=== PATIENT | male | born 1995 | race Caucasian/White ===

== ENCOUNTER 2018-09-25 15:07 | Observation (INO) ==
[2018-09-25] MEDS ORDERED: MoRPHine SULFATE 4 MG/ML 1 ML CARP\\VIAL IV PRN ×2 (15:49→20:37)
[2018-09-25] MEDS ORDERED: ONDANSETRON INJ 2 MG/ML 2 ML VIAL IV STA (15:49)
[2018-09-25 15:59] LABS: Basophils # (auto) 0.02 K/uL (0-0.2); Basophils % (auto) 0.1 %; Eosinophils # (auto) 0.07 K/uL (0-0.5); Eosinophils % (auto) 0.4 %; Hematocrit (blood only) 45.2 % (42-52); Hemoglobin 15.6 g/dL (14.0-18.0); Immature Granulocytes # (auto) 0.03 K/uL (0.00-0.02); Immature Granulocytes % (auto) 0.2 %; Lymphocytes % (auto) 5.6 %; Mean Corpuscular Hgb Conc 34.5 g/dL (32-36); Mean Corpuscular Volume 84.5 fL (80-100); Mean Platelet Volume 9.3 fL (7.4-10.4); Monocytes % (auto) 6.8 %; Neutrophils # (auto) 15.45 K/uL (1.4-6.5); Neutrophils % (auto) 86.9 %; Platelet Count 217 K/uL (130-400); RDW Coefficient of Variation 13.1 % (11.5-14.5); RDW Standard Deviation 40.3 fL (36.4-46.3); Red Blood Count 5.35 M/uL (4.7-6.1); White Blood Count 17.77 K/uL (4.8-10.8)
[2018-09-25] MEDS ORDERED: SODIUM CHLORIDE 0.9% 1000ML 1,000 ML IV SCH (16:00)
[2018-09-25 16:08] LABS: iSTAT Creatinine 0.8 mg/dl (0.6-1.3); iSTAT Hemoglobin 16.3 g/dl (14.0-18.0); iSTAT Ionized Calcium 1.2 mmol/l (1.12-1.32); iSTAT Potassium 3.7 mEq/L (3.3-5.0)
[2018-09-25 16:14] LABS: Appearance Urine Clear (Clear); Bilirubin Urine Negative (Negative); Blood Urine Negative (Negative); Color Urine Dark Yellow; Glucose Urine UA Negative (Negative); Ketones Urine 1+ (Negative); Leukocyte Esterase Urine Negative (Negative); Nitrite Urine Negative (Negative); Specific Gravity Urine 1.038 (1.000-1.030); Urobilinogen Urine Negative (Negative); pH Urine 8.5 (4.5-7.5)
[2018-09-25 16:17] LABS: Albumin Level 4.2 gm/dl (3.4-5.0); BUN Creatinine Ratio 9.2 (10-20); Creatinine Clr Calc Pharmacy 147.3 ml/min; Est GFR (Non-African American) 121.7; Potassium 3.8 mmol/L (3.5-5.1)
[2018-09-25 16:20] LABS: Albumin Globulin Ratio 1.1 (0.9-2); Bilirubin,Total 0.8 mg/dl (0.2-1); Globulin 3.8 gm/dl (2.5-4.0)
[2018-09-25] MEDS ORDERED: IOVERSOL 100ml IV PRN (16:31)
--- NOTE | 2018-09-25 16:42 | Emergency Department Note ---
Entered by Braden Conklin acting as a scribe for Hever Major DO History of Present Illness General Chief complaint: Abdominal Pain Stated complaint: POSSIBLE APPY Time Seen by Provider: 09/25/18 15:40 Source: patient Mode of arrival: ambulatory History of Present Illness Provider complaint: Abdominal Pain Onset (ago): hour(s) greater than 10 Location: abdomen Pain Consistency: + constant Maximum Pain Intensity: 6 Current Pain Intensity: 6 Associated symptoms: no chest pain and no cough Patient is a 22 year old male who presents himself for the custodial with chief complaint of abdominal pain since this morning at 5am. He woke up this morning and went to his custodial medical staff and was told nothing was wrong. Upon further pain custodial guards brought him to the ER. Patient notices his pain is sharp in nature and he is getting nauseous at times. He notes the pain to keep gradually building up. He rate his pain constant in nature and at a value of 6 on the pain intensity scale. He has had no surgeries before and no allergies. Patient denies chest pain and headaches. Home Medications Home Medications Medication Instructions Recorded Confirmed Type No Known Home Medications 09/25/18 09/25/18 History acetaminophen-codeine 2 tab PO TID PRN #1 tab 09/26/18 Rx [Tylenol-Codeine #3] ibuprofen 600 mg PO Q6H PRN #1 tab 09/26/18 Rx Allergies Allergy/AdvReac Type Severity Reaction Status Date / Time No Known Allergies Allergy Unverified 09/25/18 17:01 Past Med/Surg History Medical History No pertinent past medical history Social History Preferred Language: [place] Verde[place] Beliefs That Will Affect Care: None Current Living Situation: Other Current Living Situation Comment: encarcerated Other Information That Helps Us Care for You: No Feels Safe at Home: Yes Safety Concerns: Feels Safe At This Time Smoking Status: Current every day smoker Hx Alcohol Use: No Hx Substance Use: No Review of Systems See HPI for pertinent positives & negatives. and A total of 10 systems reviewed and were otherwise negative Physical Exam Vital Signs Vital Signs - 24 hr 09/25/18 15:15 09/25/18 16:04 09/25/18 16:35 Temperature 36.8 C Temperature Source Oral Sepsis Recent Fever Within 48 Hours No Sepsis New/Unexplained Change in Mental Status No Sepsis Action Taken by Nursing No Action Required Pulse Rate 101 H Pulse Rate [Apical] Pulse Rate [Finger] 99 H Pulse Rate [Left Finger] Pulse Rhythm [Apical] Pulse Rhythm [Finger] Pulse Strength [Finger] Respiratory Rate 17 16 Respiratory Effort / Characteristics Non-Labored Respiratory Depth Normal Respiratory Pattern Regular Blood Pressure 137/81 Blood Pressure [Right Arm] 139/84 Blood Pressure Mean 99 Blood Pressure Mean [Right Arm] 102 Blood Pressure Position Sitting Blood Pressure Position [Right Arm] Pulse Oximetry 96 97 99 Oxygen Delivery Method Room Air Room Air Room Air Oxygen Flow Rate 09/25/18 17:03 09/25/18 19:07 09/25/18 19:15 Temperature 37.1 C Temperature Source Temporal Artery Scan Sepsis Recent Fever Within 48 Hours Sepsis New/Unexplained Change in Mental Status Sepsis Action Taken by Nursing Pulse Rate Pulse Rate [Apical] 84 80 Pulse Rate [Finger] 97 H Pulse Rate [Left Finger] Pulse Rhythm [Apical] Regular Regular Pulse Rhythm [Finger] Regular Pulse Strength [Finger] Normal Respiratory Rate 20 26 H 26 H Respiratory Effort / Characteristics Non-Labored Spontaneous Non-Labored Spontaneous Non-Labored Spontaneous Respiratory Depth Normal Normal Normal Respiratory Pattern Regular Regular Regular Blood Pressure Blood Pressure [Right Arm] 144/76 H 131/59 L 138/64 Blood Pressure Mean Blood Pressure Mean [Right Arm] 98 83 88 Blood Pressure Position Blood Pressure Position [Right Arm] Sitting Lying Lying Pulse Oximetry 98 99 99 Oxygen Delivery Method Room Air Oxymask Oxymask Oxygen Flow Rate 10 10 09/25/18 19:25 09/25/18 19:35 09/25/18 19:45 Temperature Temperature Source Sepsis Recent Fever Within 48 Hours Sepsis New/Unexplained Change in Mental Status Sepsis Action Taken by Nursing Pulse Rate Pulse Rate [Apical] 69 70 80 Pulse Rate [Finger] Pulse Rate [Left Finger] Pulse Rhythm [Apical] Regular Regular Regular Pulse Rhythm [Finger] Pulse Strength [Finger] Respiratory Rate 24 24 18 Respiratory Effort / Characteristics Non-Labored Spontaneous Non-Labored Spontaneous Non-Labored Spontaneous Respiratory Depth Normal Normal Normal Respiratory Pattern Regular Regular Regular Blood Pressure Blood Pressure [Right Arm] 131/72 134/64 129/65 Blood Pressure Mean Blood Pressure Mean [Right Arm] 91 87 86 Blood Pressure Position Blood Pressure Position [Right Arm] Lying Lying Lying Pulse Oximetry 99 96 95 Oxygen Delivery Method Oxymask Room Air Room Air Oxygen Flow Rate 10 09/25/18 19:55 09/25/18 20:25 09/25/18 20:55 Temperature 37.5 C 36.9 C Temperature Source Oral Oral Sepsis Recent Fever Within 48 Hours Sepsis New/Unexplained Change in Mental Status Sepsis Action Taken by Nursing Pulse Rate Pulse Rate [Apical] 73 Pulse Rate [Finger] 70 86 Pulse Rate [Left Finger] Pulse Rhythm [Apical] Regular Pulse Rhythm [Finger] Regular Pulse Strength [Finger] Normal Respiratory Rate 18 14 16 Respiratory Effort / Characteristics Non-Labored Spontaneous Non-Labored Spontaneous Non-Labored Spontaneous Respiratory Depth Normal Normal Normal Respiratory Pattern Regular Regular Regular Blood Pressure Blood Pressure [Right Arm] 121/66 127/71 114/72 Blood Pressure Mean Blood Pressure Mean [Right Arm] 84 89 86 Blood Pressure Position Blood Pressure Position [Right Arm] Lying Lying Pulse Oximetry 73 L 95 95 Oxygen Delivery Method Room Air Room Air Room Air Oxygen Flow Rate 09/25/18 21:21 09/25/18 22:26 09/25/18 23:26 Temperature 36.9 C 37.1 C Temperature Source Oral Oral Sepsis Recent Fever Within 48 Hours Sepsis New/Unexplained Change in Mental Status Sepsis Action Taken by Nursing Pulse Rate Pulse Rate [Apical] Pulse Rate [Finger] 81 97 H Pulse Rate [Left Finger] 84 Pulse Rhythm [Apical] Pulse Rhythm [Finger] Pulse Strength [Finger] Respiratory Rate 16 17 14 Respiratory Effort / Characteristics Respiratory Depth Normal Respiratory Pattern Blood Pressure Blood Pressure [Right Arm] 121/72 123/71 116/69 Blood Pressure Mean Blood Pressure Mean [Right Arm] 88 88 84 Blood Pressure Position Blood Pressure Position [Right Arm] Lying Lying Pulse Oximetry 94 94 96 Oxygen Delivery Method Room Air Room Air Room Air Oxygen Flow Rate 09/26/18 03:25 09/26/18 07:28 09/26/18 09:17 Temperature 36.9 C 36.9 C 36.9 C Temperature Source Oral Oral Sepsis Recent Fever Within 48 Hours Sepsis New/Unexplained Change in Mental Status Sepsis Action Taken by Nursing Pulse Rate Pulse Rate [Apical] Pulse Rate [Finger] 97 H Pulse Rate [Left Finger] 84 62 62 Pulse Rhythm [Apical] Pulse Rhythm [Finger] Pulse Strength [Finger] Respiratory Rate 16 18 18 Respiratory Effort / Characteristics Respiratory Depth Respiratory Pattern Blood Pressure Blood Pressure [Right Arm] 132/80 110/75 110/75 Blood Pressure Mean Blood Pressure Mean [Right Arm] 97 86 Blood Pressure Position Blood Pressure Position [Right Arm] Lying Lying Pulse Oximetry 96 96 96 Oxygen Delivery Method Room Air Room Air Oxygen Flow Rate GENERAL: Patient is awake alert in no acute distress patient is resting comfortably and showing no signs of anxiety EYES: The conjunctivae are clear. The pupils are round and reactive. EARS, NOSE, MOUTH AND THROAT: The nose is without any evidence of any deformity. Mucous membranes are moist tongue is midline NECK: The neck is nontender and supple. RESPIRATORY: Normal respiratory effort is noted there is no evidence of wheezing rhonchi or rales CARDIOVASCULAR: Regular rate and rhythm noted there no murmurs rubs or gallops normal S1 normal S2 GASTROINTESTINAL: Abdomen is mildly distended but soft. There is significant right lower quadrant tenderness to palpation with guarding in the right lower quadrant. BACK: No midline tenderness or or step-off noted range of motion in flexion extension as well as rotation no signs of muscle spasm noted MUSCULOSKELETAL/EXTREMITIES: There is no evidence of gross deformity full range of motion is noted in the hips and shoulders SKIN: There is no obvious evidence of any rash. There are no petechiae, pallor or cyanosis noted. NEUROLOGIC: Patient is awake alert and oriented x3 strength is symmetric bradley llar reflexes are 2+ bilaterally Course 1547: Past medical records reviewed. The patient was evaluated in room C04, and a complete history and physical examination were performed. 1703: I spoke with ENE Fallon upon results revealing appendicitis. He will perform the appendectomy procedure. The patient has verbalized agreement to this care. Consultations Consultation #1: ENE Fallon Time: 17:03 Administered Medications Discontinued Medications Bupivacaine HCl/Epinephrine Bitart (Sensorcaine/Epinephrine 0.5% Mpf 1:200,000) Confirm Administered Dose 30 ml .ROUTE .STAltruik-MED ONE Stop: 09/25/18 17:11 Last Admin: 09/25/18 18:45 Dose: 20 ml Documented by: [id number] Fentanyl Citrate (Fentanyl Citrate) 25 mcg IV Q5M PRN PRN Reason: PACU Use Only-Pain Stop: 09/25/18 23:06 Last Admin: 09/25/18 19:37 Dose: 25 mcg Documented by: [id number] Admin: 09/25/18 19:32 Dose: 25 mcg Documented by: [id number] Admin: 09/25/18 19:27 Dose: 25 mcg Documented by: [id number] Admin: 09/25/18 19:22 Dose: 25 mcg Documented by: [id number] Fentanyl Citrate (Fentanyl Citrate) Confirm Administered Dose 100 mcg .ROUTE .STK-MED ONE Stop: 09/25/18 19:24 Last Admin: 09/25/18 21:01 Dose: Not Given Documented by: [id number] Hydromorphone HCl (Dilaudid) 0.25 mg IV Q5M PRN PRN Reason: PACU Use Only-Pain Stop: 09/25/18 23:06 Last Admin: 09/25/18 19:57 Dose: 0.25 mg Documented by: [id number] Admin: 09/25/18 19:52 Dose: 0.25 mg Documented by: [id number] Admin: 09/25/18 19:47 Dose: 0.25 mg Documented by: [id number] Admin: 09/25/18 19:42 Dose: 0.25 mg Documented by: [id number] Hydromorphone HCl (Dilaudid) Confirm Administered Dose 1 mg .ROUTE .STK-MED ONE Stop: 09/25/18 19:40 Last Admin: 09/25/18 21:01 Dose: Not Given Documented by: [id number] Sodium Chloride (Nss 1000ml) 1,000 mls @ 999 mls/hr IV .Q1H1M MARJ Stop: 09/25/18 17:00 Last Infusion: 09/25/18 21:20 Dose: 0 mls/hr Documented by: [id number] Admin: 09/25/18 16:03 Dose: 999 mls/hr Documented by: [id number] Piperacillin Sod/Tazobactam Sod (Zosyn) 4.5 gm in 120 mls @ 240 mls/hr IV NOW ONE Stop: 09/25/18 17:21 Last Infusion: 09/25/18 21:20 Dose: 0 mls/hr Documented by: [id number] Admin: 09/25/18 16:57 Dose: 240 mls/hr Documented by: [id number] Piperacillin Sod/Tazobactam (Sod 3.375 gm/ Dextrose) 115 mls @ 28.75 mls/hr IV Q8H MARJ; Protocol Stop: 10/06/18 00:00 Last Admin: 09/26/18 08:42 Dose: 28.8 mls/hr Documented by: [id number] Infusion: 09/26/18 03:44 Dose: 0 mls/hr Documented by: [id number] Admin: 09/25/18 23:46 Dose: 28.8 mls/hr Documented by: [id number] Lactated Ringer's (Lr) 1,000 mls @ 100 mls/hr IV .Q10H MARJ Stop: 10/25/18 21:44 Last Admin: 09/26/18 08:46 Dose: 100 mls/hr Documented by: [id number] Infusion: 09/26/18 08:46 Dose: 100 mls/hr Documented by: [id number] Admin: 09/26/18 02:16 Dose: 100 mls/hr Documented by: [id number] Ibuprofen (Motrin) 600 mg PO Q6H PRN PRN Reason: MILD Pain (Scale 1,2,3) Stop: 10/25/18 20:36 Last Admin: 09/26/18 08:43 Dose: 600 mg Documented by: [id number] Admin: 09/25/18 23:42 Dose: 600 mg Documented by: [id number] Influenza Virus Vaccine Quadrival (Flucelvax Quad Vaccine) 0.5 ml IM .ONCE ONE Stop: 09/25/18 21:31 Last Admin: 09/26/18 05:58 Dose: 0.5 ml Documented by: [id number] Ioversol (Optiray 320 100ml) 96 ml IV ONCE PRN PRN Reason: Interaction Checking Stop: 09/29/18 16:30 Last Admin: 09/25/18 16:31 Dose: 96 ml Documented by: [id number] Morphine Sulfate (Morphine Sulfate) 4 mg IV Q15M PRN PRN Reason: Pain Stop: 10/09/18 15:48 Last Admin: 09/25/18 16:03 Dose: 4 mg Documented by: [id number] Ondansetron HCl (Zofran) 4 mg IV NOW STA Stop: 09/25/18 15:50 Last Admin: 09/25/18 16:03 Dose: 4 mg Documented by: [id number] Medical Decision Making Differential Diagnosis I considered cholelithiasis, cholecystitis, bowel obstruction, diverticulitis, pancreatitis, renal colic, appendicitis inflammatory bowel disease, gastritis, and peptic/gastric ulcer disease. Medical Records Attestation: I reviewed the patient's medical records. Home Medications Current Medication List: was personally reviewed by me Laboratory Data Attestation: I reviewed the patient's lab results. Result diagrams: 09/25/18 15:49 09/25/18 15:49 Lab Results 09/25/18 09/25/18 09/25/18 Range/Units 15:49 15:49 15:50 WBC 17.77 H (4.8-10.8) K/uL RBC 5.35 (4.7-6.1) M/uL Hgb 15.6 (14.0-18.0) g/dL POC Hgb (14.0-18.0) g/dl Hct 45.2 (42-52) % POC Hct (42-52) % MCV 84.5 (80-100) fL MCH 29.2 (25-34) pg MCHC 34.5 (32-36) g/dL RDW Std Deviation 40.3 (36.4-46.3) fL RDW Coeff of Anayeli 13.1 (11.5-14.5) % Plt Count 217 (130-400) K/uL MPV 9.3 (7.4-10.4) fL Immature Gran % (Auto) 0.2 % Neut % (Auto) 86.9 % Lymph % (Auto) 5.6 % Dickenson % (Auto) 6.8 % Eos % (Auto) 0.4 % Baso % (Auto) 0.1 % Immature Gran # (Auto) 0.03 H (0.00-0.02) K/uL Neut # (Auto) 15.45 H (1.4-6.5) K/uL Lymph # (Auto) 1.00 L (1.2-3.4) K/uL Dickenson # (Auto) 1.20 H (0.11-0.59) K/uL Eos # (Auto) 0.07 (0-0.5) K/uL Baso # (Auto) 0.02 (0-0.2) K/uL POC Sodium (135-144) mEq/L Sodium 138 (136-145) mmol/L POC Potassium (3.3-5.0) mEq/L Potassium 3.8 (3.5-5.1) mmol/L POC Chloride (101-112) mEq/L Chloride 103 (98-107) mmol/L Carbon Dioxide 30 (21-32) mmol/L POC Total CO2 (24-31) mEq/l Anion Gap 5.0 (3-11) POC Anion Gap (16-25) mmol/L POC BUN (7-18) mg/dl BUN 8 (7-18) mg/dl Creatinine 0.90 (0.6-1.4) mg/dl POC Creatinine (0.6-1.3) mg/dl Est Cr Clr Drug Dosing 147.3 ml/min Est GFR ( Amer) 141.0 Est GFR (Non-Af Amer) 121.7 BUN/Creatinine Ratio 9.2 L (10-20) Glucose 99 (70-99) mg/dl POC Glucose (other) (70-99) mg/dl Calcium 9.0 (8.5-10.1) mg/dl POC Ioniz Calcium Kul[place]inder (1.12-1.32) mmol/l Total Bilirubin 0.8 (0.2-1) mg/dl AST 9 L (15-37) U/L ALT 18 (12-78) U/L Alkaline Phosphatase 128 H (45-117) U/L Total Protein 8.0 (6.4-8.2) gm/dl Albumin 4.2 (3.4-5.0) gm/dl Globulin 3.8 (2.5-4.0) gm/dl Albumin/Globulin Ratio 1.1 (0.9-2) Lipase 44 L (73-393) U/L Urine Color Dark Yellow Urine Appearance Clear (Clear) Urine pH 8.5 H (4.5-7.5) Ur Specific [place] 1.038 H (1.000-1.030) Urine Protein Negative (Negative) Urine Glucose (UA) Negative (Negative) Urine Ketones 1+ H (Negative) Urine Blood Negative (Negative) Urine Nitrite Negative (Negative) Urine Bilirubin Negative (Negative) Urine Urobilinogen Negative (Negative) Ur Leukocyte Esterase Negative (Negative) Urine WBC (Auto) 1-5 (0-5) /hpf Urine RBC (Auto) 0-4 (0-4) /hpf U Hyaline Cast (Auto) 0 (0-5) /lpf U Epithel Cells (Auto) 0-5 (0-5) /lpf Urine Bacteria (Auto) Negative (Negative) Ur Renal Epithelial Cell Not Reportable Nasal Screen MRSA (PCR) (Negative) 09/25/18 09/25/18 Range/Units 15:55 21:30 WBC (4.8-10.8) K/uL RBC (4.7-6.1) M/uL Hgb (14.0-18.0) g/dL POC Hgb 16.3 (14.0-18.0) g/dl Hct (42-52) % POC Hct 48 (42-52) % MCV (80-100) fL MCH (25-34) pg MCHC (32-36) g/dL RDW Std Deviation (36.4-46.3) fL RDW Coeff of Anayeli (11.5-14.5) % Plt Count (130-400) K/uL MPV (7.4-10.4) fL Immature Gran % (Auto) % Neut % (Auto) % Lymph % (Auto) % Dickenson % (Auto) % Eos % (Auto) % Baso % (Auto) % Immature Gran # (Auto) (0.00-0.02) K/uL Neut # (Auto) (1.4-6.5) K/uL Lymph # (Auto) (1.2-3.4) K/uL Dickenson # (Auto) (0.11-0.59) K/uL Eos # (Auto) (0-0.5) K/uL Baso # (Auto) (0-0.2) K/uL POC Sodium 139 (135-144) mEq/L Sodium (136-145) mmol/L POC Potassium 3.7 (3.3-5.0) mEq/L Potassium (3.5-5.1) mmol/L POC Chloride 101 (101-112) mEq/L Chloride (98-107) mmol/L Carbon Dioxide (21-32) mmol/L POC Total CO2 26 (24-31) mEq/l Anion Gap (3-11) POC Anion Gap 18.0 (16-25) mmol/L POC BUN 7 (7-18) mg/dl BUN (7-18) mg/dl Creatinine (0.6-1.4) mg/dl POC Creatinine 0.8 (0.6-1.3) mg/dl Est Cr Clr Drug Dosing ml/min Est GFR ( Amer) Est GFR (Non-Af Amer) BUN/Creatinine Ratio (10-20) Glucose (70-99) mg/dl POC Glucose (other) 104 H (70-99) mg/dl Calcium (8.5-10.1) mg/dl POC Ioniz Calcium [place] 1.20 (1.12-1.32) mmol/l Total Bilirubin (0.2-1) mg/dl AST (15-37) U/L ALT (12-78) U/L Alkaline Phosphatase (45-117) U/L Total Protein (6.4-8.2) gm/dl Albumin (3.4-5.0) gm/dl Globulin (2.5-4.0) gm/dl Albumin/Globulin Ratio (0.9-2) Lipase (73-393) U/L Urine Color Urine Appearance (Clear) Urine pH (4.5-7.5) Ur Specific [place] (1.000-1.030) Urine Protein (Negative) Urine Glucose (UA) (Negative) Urine Ketones (Negative) Urine Blood (Negative) Urine Nitrite (Negative) Urine Bilirubin (Negative) Urine Urobilinogen (Negative) Ur Leukocyte Esterase (Negative) Urine WBC (Auto) (0-5) /hpf Urine RBC (Auto) (0-4) /hpf U Hyaline Cast (Auto) (0-5) /lpf U Epithel Cells (Auto) (0-5) /lpf Urine Bacteria (Auto) (Negative) Ur Renal Epithelial Cell Nasal Screen MRSA (PCR) Negative (Negative) Imaging Data Attestation: I personally reviewed and interpreted this imaging study as follows: Radiologist's Impression: Radiology results as stated below per my review and the radiologist's interpretation: CT abd pelvis IV con only CLINICAL HISTORY: RLQ pain COMPARISON STUDY: None. TECHNIQUE: The patient was scanned in a dynamic helical fashion during intravenous administration of 96 cc Optiray 320. A dose lowering technique was utilized adhering to the principles of ALARA. CT DOSE: 435.38 mGy.cm FINDINGS: Lower chest: There are minor left basilar atelectatic changes Liver: The contrast-enhanced liver is normal in size, contour, and attenuation. There is no intrahepatic biliary ductal dilatation. The hepatic veins and portal veins are patent. Gallbladder: Unremarkable. Spleen: Normal in size and attenuation. Pancreas: Unremarkable. Adrenal glands: Unremarkable. Kidneys: There is symmetric renal cortical enhancement. The kidneys are normal in size without hydronephrosis. Bowel: There are no transition zones indicate bowel obstruction. There is a mildly dilated fluid-filled appendix measuring 10 mm. There is extensive periappendiceal inflammatory change. There are few droplets of gas which potentially are extraluminal intravascular. The findings are indicative of acute appendicitis with possible gangrene. Peritoneum: There is no free intraperitoneal fluid. Vasculature: The abdominal aorta is normal in course and caliber. Adenopathy: None. Pelvic viscera: The bladder, and pelvic viscera are unremarkable. Skeletal structures: No destructive osseous lesions are seen. IMPRESSION: Acute appendicitis, possibly gangrenous. Surgical consultation is recommended. Electronically signed by: Goyo Nagel M.D. 09/25/2018 4:51 PM Dictated: 09/25/[id number] Transcribed: 09/25/181643 Blood Pressure Blood Pressure Findings: Normal blood pressure MDM Narrative The patient is a 22-year-old male who presented to the emergency department for an evaluation of lower abdominal pain. The patient started having right-sided abdominal pain over the last 24 hours. He presented from the custodial. He does have a history of being evaluated in the [facility] prior to arrival. He was found to have significant pain and was sent to the emergency department for further evaluation. I discussed the patient's laboratory and radiographic studies with him. He was found to have signs of appendicitis on CT of the abdomen and pelvis. He was treated with IV fluids IV pain medication and IV antiemetics. He was also given IV antibiotics. His case was discussed with the on-call general surgeon. They have agreed to evaluate the patient in the emergency department for further management and disposition. Impression & Plan Appendicitis, Abdominal pain Discharge Plan Visit Data *Final* Discharge Date/Time: 09/25/18 17:09 Chief Complaint: Abdominal Pain Stated Complaint: POSSIBLE APPY ED Provider: Hever Major Discharge Problem: Appendicitis, Abdominal pain Patient Disposition: Admitted As Inpatient Discharge Instructions Interventions: ED Discharge Assessment Last Done: 09/25/18 17:09 The scribe's documentation has been prepared under my direction and personally reviewed by me in its entirety. I confirm that the note above accurately reflects all work, treatment, procedures, and medical decision making performed by me.
[2018-09-25] MEDS ORDERED: PIPERACILLIN/TAZOBACTAM 4.5 GM/120 ML BAG IV ONE (16:52)
[2018-09-25] MEDS ORDERED: PIPERACILL/TAZOBAC CONSULT ACTIVE PRN (16:52)
--- NOTE | 2018-09-25 16:52 | CT Scan Report ---
CT abd pelvis IV con only CLINICAL HISTORY: RLQ pain COMPARISON STUDY: None. TECHNIQUE: The patient was scanned in a dynamic helical fashion during intravenous administration of 96 cc Optiray 320. A dose lowering technique was utilized adhering to the principles of ALARA. CT DOSE: 435.38 mGy.cm FINDINGS: Lower chest: There are minor left basilar atelectatic changes Liver: The contrast-enhanced liver is normal in size, contour, and attenuation. There is no intrahepa tic biliary ductal dilatation. The hepatic veins and portal veins are patent. Gallbladder: Unremarkable. Spleen: Normal in size and attenuation. Pancreas: Unremarkable. Adrenal glands: Unremarkable. Kidneys: There is symmetric renal cortical enhancement. The kidneys are normal in size without hydron ephrosis. Bowel: There are no transition zones indicate bowel obstruction. There is a mildly dilated fluid-fill ed appendix measuring 10 mm. There is extensive periappendiceal inflammatory change. There are few dr oplets of gas which potentially are extraluminal intravascular. The findings are indicative of acute appendicitis with possible gangrene. Peritoneum: There is no free intraperitoneal fluid. Vasculature: The abdominal aorta is normal in course and caliber. Adenopathy: None. Pelvic viscera: The bladder, and pelvic viscera are unremarkable. Skeletal structures: No destructive osseous lesions are seen. IMPRESSION: Acute appendicitis, possibly gangrenous. Surgical consultation is recommended. Electronically signed by: Goyo Nagel M.D. 09/25/2018 4:51 PM
[2018-09-25 16:53] LABS: Protein Urine Negative (Negative)
[2018-09-25 16:55] LABS: Bacteria Urine Automated Negative (Negative); Cast Urine Automated 0 /lpf (0-5); Epithelial Cell Urine Auto 0-5 /lpf (0-5); RBC Urine Automated 0-4 /hpf (0-4)
--- NOTE | 2018-09-25 17:03 | History & Physical Report ---
Date of Service September 25, 2018 Assessment & Plan (1) Appendicitis: discussed findings/options discussed risks ( bleeding/infection/leaks/dvt/pe/mi/cva/injury to another organ etc...) questions answered will proceed with khloe schwab History of Present Illness Primary Care Provider: MARIA DEL ROSARIO Loza pt woke at 5 am this morning with acute RLQ pain. CT c/w appendicitis Allergies Allergy/AdvReac Type Severity Reaction Status Date / Time No Known Allergies Allergy Unverified 09/25/18 17:01 Home Medications Home Medications Medication Instructions Recorded Confirmed Type No Known Home Medications 09/25/18 09/25/18 History Past Med/Surg History Social History Preferred Language: Bengali Feels Safe at Home: Yes Smoking Status: Current every day smoker Review of Systems All systems reviewed & are unremarkable except as noted in HPI & below Physical Exam Vital Signs (Past 24 Hours): Last Vital Signs Temp 36.8 C 09/25/18 15:15 Pulse 99 H 09/25/18 16:35 Resp 16 09/25/18 16:35 BP 139/84 09/25/18 16:35 Pulse Ox 99 09/25/18 16:35 Physical Exam: alert/oriented. mild discomfort Heent: poor dentition. pearla. eomi Heart: RRR Lungs: CTA b/l abd: soft. +RLQ ttp. +guarding ext: no c/c/e Results & Data Medications Administered Piperacillin Sod/Tazobactam Sod (Zosyn) 4.5 gm in 120 mls @ 240 mls/hr IV NOW ONE Stop: 09/25/18 17:21 Last Admin: 09/25/18 16:57 Dose: 240 mls/hr Documented by: [id number] Ioversol (Optiray 320 100ml) 96 ml IV ONCE PRN PRN Reason: Interaction Checking Stop: 09/29/18 16:30 Last Admin: 09/25/18 16:31 Dose: 96 ml Documented by: [id number] Morphine Sulfate (Morphine Sulfate) 4 mg IV Q15M PRN PRN Reason: Pain Stop: 10/09/18 15:48 Last Admin: 09/25/18 16:03 Dose: 4 mg Documented by: [id number]
[2018-09-25] MEDS ORDERED: BUPIVACAINE/EPINEPHRINE 0.5% MPF 1:200,000 30 ML VIAL ONE (17:10)
--- NOTE | 2018-09-25 17:17 | Anesthesiology Consultation ---
Date of Service September 25, 2018 Assessment & Plan Chart Review Chart Review: Acceptable Risk for Surgery and Patient NOT seen in Pre Admission Testing Consults Requested none ASA ASA2E Proposed Anesthesia Anesthesia Type: General Risk / Benefits Reviewed With: PT / POA / Parent / Guardian, Accepts Plan and Informed Consent Obtained NPO Date Last Intake of Fluids: 09/25/18 Time Last Intake of Fluids: 11:00 Date Last Intake of Solids: 09/25/18 Time Last Intake of Solids: 11:00 Last Intake of Solids Comment: cereal bar History Surgery Operation Date: 09/25/18 17:05 Proposed Procedures p Laparoscopic Appendectomy - Keegan Estevez, DO Height/Weight Height: 1.78 m Weight: 91 kg Allergies Allergy/AdvReac Type Severity Reaction Status Date / Time No Known Allergies Allergy Unverified 09/25/18 17:01 Medications Home Medications Medication Instructions Recorded Confirmed Last Taken No Known Home Medications 09/25/18 09/25/18 Unknown Active Medications Generic Name Dose Route Start Last Admin Trade Name Freq PRN Reason Stop Dose Admin Ioversol 96 ml 09/25/18 16:31 09/25/18 16:31 Optiray 320 100ml IV 09/29/18 16:30 96 ml ONCE PRN Administration Interaction Checking Morphine Sulfate 4 mg 09/25/18 15:49 09/25/18 16:03 Morphine Sulfate IV 10/09/18 15:48 4 mg Q15M PRN Administration Pain Past Medical History Denies any PMH. Not taking any prescription medications at home Past Anesthesia History No Family Hx of Anesthesia Complications No h/o previous anesthesia Motion Sickness Screening History of Motion Sickness: No Social History Smoking Status: Current every day smoker Smoking cigarettes per day: 1ppd x 6 years Do You Dip or Chew Tobacco: No Hx Alcohol Use: No substance use type: marijuana, crack/cocaine, heroin and amphetamines Substance Use Type Other:: None in the past 2 years Exercise / Class Metabolic Activity II 4-5 Yardwork/Stairs/Walk up hill Physical Exam Vital Signs Last Vital Signs Temp 36.8 C 09/25/18 15:15 Pulse 97 H 09/25/18 17:03 Resp 20 09/25/18 17:03 BP 144/76 H 09/25/18 17:03 Pulse Ox 98 09/25/18 17:03 ENMT Mouth: + poor dentition (Multiple cracked, chipped teeth in bad condition); no TMJ abnormality and no TMJ clicking Thyromental Distance: > or= 3.5 Finger Breadths Mallampati Class: II Mouth / Teeth: 1. Missing Neck normal visual inspection; neck extension not limited Respiratory Auscultation: lungs clear to auscultation bilaterally Cardiovascular Rate/Rhythm: regular rate and regular rhythm Psychiatric Orientation: alert and oriented x 3 Testing Laboratory Results 09/25/18 15:49 09/25/18 15:49 Urine Color Dark Yellow 09/25/18 15:50 Urine Appearance Clear (Clear) 09/25/18 15:50 Urine pH 8.5 (4.5-7.5) H 09/25/18 15:50 Ur Specific [place] 1.038 (1.000-1.030) H 09/25/18 15:50 Urine Protein Negative (Negative) 09/25/18 15:50 Urine Glucose (UA) Negative (Negative) 09/25/18 15:50 Urine Ketones 1+ (Negative) H 09/25/18 15:50 Urine Nitrite Negative (Negative) 09/25/18 15:50 Ur Leukocyte Esterase Negative (Negative) 09/25/18 15:50 Urine WBC (Auto) 1-5 /hpf (0-5) 09/25/18 15:50 Urine RBC (Auto) 0-4 /hpf (0-4) 09/25/18 15:50 U Hyaline Cast (Auto) 0 /lpf (0-5) 09/25/18 15:50 U Epithel Cells (Auto) 0-5 /lpf (0-5) 09/25/18 15:50 Urine Bacteria (Auto) Negative (Negative) 09/25/18 15:50 09/25/18 15:55 POC Glucose (other) 104 H
[2018-09-25] MEDS ORDERED: MIDAZOLAM HCL 1 MG/ML 2ML VIAL ONE (17:25)
[2018-09-25] MEDS ORDERED: fentaNYL citrate 100 MCG/2 ML VIAL ONE ×2 (17:25→19:23)
[2018-09-25] MEDS ORDERED: ATROPINE SULFATE 0.1 MG/ML 10ML SYR IV PRN (18:02)
[2018-09-25] MEDS ORDERED: PROMETHAZINE HCL 12.5 MG in SODIUM CHLORIDE 0.9% 50 ML IV PRN (18:02)
[2018-09-25] MEDS ORDERED: ONDANSETRON INJ 2 MG/ML 2 ML VIAL IV PRN ×2 (18:02→20:37)
[2018-09-25] MEDS ORDERED: PHENYLEPHRINE 100MCG/ML 5ML SYR IV PRN (18:02)
[2018-09-25] MEDS ORDERED: ePHEDrine sulfate 50 MG/ML AMP IV PRN (18:02)
[2018-09-25] MEDS ORDERED: PROPOFOL IV EMULSION 10 MG/ML 20 ML VIAL IV ONE (18:03)
[2018-09-25] MEDS ORDERED: ROCURONIUM BROMIDE 10 MG/ML 5 ML VIAL ONE (18:03)
[2018-09-25] MEDS ORDERED: GLYCOPYRROLATE 0.2 MG/ML VIAL ONE (18:03)
[2018-09-25] MEDS ORDERED: NEOSTIGMINE METHYLSULFATE 5 MG/5 ML SYR ONE (18:03)
[2018-09-25] MEDS ORDERED: ONDANSETRON INJ 2 MG/ML 2 ML VIAL ONE (18:03)
[2018-09-25] MEDS ORDERED: SUCCINYLCHOLINE CHLORIDE 20 MG/ML 10 ML VIAL ONE (18:03)
--- NOTE | 2018-09-25 18:57 | Operative Report ---
Post Operative Report Pre & Post Diagnosis Operation Date: 09/25/18 17:05 Pre-Op Diagnosis: Acute Appendicitis Post-Op Diagnosis: Acute Appendicitis Procedure Operation Date: 09/25/18 17:05 Actual Procedures p Laparoscopic Appendectomy(Not Applicable); enterolysis - Keegan Estevez DO Surgeon Keegan Estevez DO Communications Department Chair n/a Estimated Blood Loss 5 Findings Consistent with Post-Op Diagnosis Specimens appendix Description of Procedure After informed consent was obtained the patient was taken to the operating room and placed in supine position. After successful intubation the abdomen was sterilely prepped and draped in usual fashion. I began by making a periumbilical incision with an 11 blade scalpel and carried this down through the soft tissue using electrocautery. The anterior rectus fascia was opened using electrocautery and 2 #0 Vicryl stay sutures were placed. The peritoneum was elevated using hemostats and incised under direct vision using a Metzenbaum scissor. A finger sweep was performed. A 12 mm Germain trocar was placed and the abdomen was insufflated to 18 mmHg. A laparoscope was inserted and the abdomen was examined in 360. A suprapubic 5 mm port and a left lower quadrant 12 mm port were placed under direct vision. The patient was air planed to the left as well as placed in a slight Trendelenburg position. We began by looking in the right lower quadrant. Initially I was unable to even identify the appendix. Eventually after blunt dissection I was able to identify the base of the appendix. The appendix itself was completely retrocecal. I was able to use a [place] dissector to make a small window in the mesoappendix and then transect the base of the appendix with a brown cartridge ROVERTO stapler. It was then rather tedious dissection to get the appendix off of both the right lower quadrant sidewall as well as the right colon. I used sharp scissor lysis to take down the white line of Toldt so that I could roll the right colon medially. I was then able to use traction countertraction and small amounts of sharp scissor lysis to tediously peel the appendix away from the colon. Eventually I was able to make my way out to the tip of the appendix which was massively inflamed and thickened. I used a ROVERTO brown cartridge stapler to transect the mesoappendix as well. I then used the harmonic scalpel to take down the remainder of the mesentery to the appendix. Eventually I was able to completely free it up. It was then placed into an Endo Catch bag and removed from the camera port site. We thoroughly irrigated the right lower quadrant as well as the pelvis. There was adequate hemostasis. I ran the small bowel backwards from the terminal ileum for about 6 feet all of which was normal. All the peritoneal surfaces were normal. Small/ large bowel, liver, stomach etc. all appeared grossly normal. We did a final irrigation and then removed all the trochars and desufflated the abdomen. The fascia of the camera port as well as the left lower quadrant were closed using 0 Vicryl in [id number] fashion. Wounds were all irrigated and closed using 4-0 Monocryl. Marcaine was injected around them for postoperative analgesia and skin glue used as a dressing. The patient was awakened extubated and transferred to recovery in stable condition. I attest to the content of the Intraoperative Record and any orders documented therein. Any exceptions are noted below.
[2018-09-25] MEDS: fentaNYL citrate 100 MCG/2 ML VIAL IV PRN ×4 (19:22→19:37)
[2018-09-25] MEDS ORDERED: HYDROmorphone INJ 1 MG/ML SYRINGE ONE (19:39)
[2018-09-25] MEDS: HYDROmorphone INJ 1 MG/ML SYRINGE IV PRN ×4 (19:42→19:57)
--- NOTE | 2018-09-25 20:05 | Anesthesiology Progress Note ---
Date of Service September 25, 2018 Anesthesia Post Procedure Vital Signs Vital Signs: Temp Pulse Pulse Pulse Resp BP BP 09/25/18 19:55 73 18 121/66 09/25/18 19:45 80 18 129/65 09/25/18 19:35 70 24 134/64 09/25/18 19:25 69 24 131/72 09/25/18 19:15 80 26 H 138/64 09/25/18 19:07 37.1 C 84 26 H 131/59 L 09/25/18 17:03 97 H 20 144/76 H 09/25/18 16:35 99 H 16 139/84 09/25/18 16:04 09/25/18 15:15 36.8 C 101 H 17 137/81 Pulse Ox 09/25/18 19:55 73 L 09/25/18 19:45 95 09/25/18 19:35 96 09/25/18 19:25 99 09/25/18 19:15 99 09/25/18 19:07 99 09/25/18 17:03 98 09/25/18 16:35 99 09/25/18 16:04 97 09/25/18 15:15 96 Pain Intensity Right Abdomen: Pain Intensity: 7 Notes Mental Status: alert / awake / arousable and participated in evaluation Patient Amnestic to Procedure: Yes Nausea / Vomiting: adequately controlled Pain: adequately controlled Airway Patency, RR, SpO2: stable & adequate BP & HR: stable & adequate Hydration State: stable & adequate Anesthetic Complications: no major complications apparent and Pt Satisfied with anesthetic care
[2018-09-25] MEDS ORDERED: MoRPHine SULFATE 2 MG/ML CARP IV PRN (20:37)
[2018-09-25] MEDS ORDERED: HYDROCODONE/ACETAMOPHEN 5/325MG TAB PO PRN ×2 (20:37)
[2018-09-25] MEDS ORDERED: INFLUENZA VIRUS QUAD VACCINE 0.5 ML SYR IM ONE (21:30)
[2018-09-25] MEDS ORDERED: INFLUENZA ADMINISTRATION CHARGE ONE (21:30)
[2018-09-25 23:27] VITALS: O2SAT 96
[2018-09-25] MEDS: IBUPROFEN 600 MG TAB PO PRN (23:42)
[2018-09-25] MEDS: PIPERACILLIN/TAZOBACTAM 3.375 GM in DEXTROSE 5% 100 ML IV SCH (23:46)
[2018-09-26] MEDS: LACTATED RINGER'S 1,000 ML IV SCH ×2 (02:16→08:46)
[2018-09-26 03:47] VITALS: TEMP 98.4
[2018-09-26 07:29] VITALS: BP 110/75
--- NOTE | 2018-09-26 08:02 | Anesthesiology Progress Note ---
Date of Service September 26, 2018 Anesthesia Post Procedure Vital Signs Vital Signs: Temp Pulse Pulse Pulse Pulse Resp BP 09/26/18 07:28 36.9 C 62 18 09/26/18 03:25 36.9 C 84 16 09/25/18 23:26 37.1 C 84 14 09/25/18 22:26 36.9 C 97 H 17 09/25/18 21:21 81 16 09/25/18 20:55 36.9 C 86 16 09/25/18 20:25 37.5 C 70 14 09/25/18 19:55 73 18 09/25/18 19:45 80 18 09/25/18 19:35 70 24 09/25/18 19:25 69 24 09/25/18 19:15 80 26 H 09/25/18 19:07 37.1 C 84 26 H 09/25/18 17:03 97 H 20 09/25/18 16:35 99 H 16 09/25/18 16:04 09/25/18 15:15 36.8 C 101 H 17 137/81 BP Pulse Ox 09/26/18 07:28 110/75 96 09/26/18 03:25 132/80 96 09/25/18 23:26 116/69 96 09/25/18 22:26 123/71 94 09/25/18 21:21 121/72 94 09/25/18 20:55 114/72 95 09/25/18 20:25 127/71 95 09/25/18 19:55 121/66 73 L 09/25/18 19:45 129/65 95 09/25/18 19:35 134/64 96 09/25/18 19:25 131/72 99 09/25/18 19:15 138/64 99 09/25/18 19:07 131/59 L 99 09/25/18 17:03 144/76 H 98 09/25/18 16:35 139/84 99 09/25/18 16:04 97 09/25/18 15:15 96 Pain Intensity Right Abdomen: Pain Intensity: 6 Notes Mental Status: alert / awake / arousable and participated in evaluation Patient Amnestic to Procedure: Yes Nausea / Vomiting: adequately controlled Pain: adequately controlled Airway Patency, RR, SpO2: stable & adequate BP & HR: stable & adequate Hydration State: stable & adequate Anesthetic Complications: no major complications apparent
[2018-09-26] MEDS: PIPERACILLIN/TAZOBACTAM 3.375 GM in DEXTROSE 5% 100 ML IV SCH (08:42)
[2018-09-26] MEDS: IBUPROFEN 600 MG TAB PO PRN (08:43)
--- NOTE | 2018-09-26 09:05 | Surgery Progress Note ---
Date of Service September 26, 2018 Assessment & Plan (1) Appendicitis: POD 1 lap appy ok for discharge Subjective tolerating diet, po analgesics Physical Exam Vital Signs (Past 24 Hours): Last Vital Signs Temp 36.9 C 09/26/18 07:28 Pulse 62 09/26/18 07:28 Resp 18 09/26/18 07:28 BP 110/75 09/26/18 07:28 Pulse Ox 96 09/26/18 07:28 Gastrointestinal (Abdomen): Inspection/Auscultation: + abdominal surgical incision (dry blood on umbilical dressing); abdomen not distended Percussion/Palpation: abdomen soft (1) Appendicitis Appendicitis type: unspecified Qualified Code(s): K37 - Unspecified appendicitis
[2018-09-26 09:19] VITALS: PULSE 97
[2018-09-26] MEDS ORDERED: PIPERACILL/TAZOBAC CONSULT ACTIVE PRN (10:16)
--- NOTE | 2018-09-27 08:53 | Discharge Summary ---
Date of Service September 28, 2018 Admission HPI Per Admitting Provider pt woke at 5 am this morning with acute RLQ pain. CT c/w appendicitis Discharge Data Consultations 09/25/18 17:09 Consult General Surgery Stat Procedures Performed Operation Date: 09/25/18 17:05 Actual Procedures p Laparoscopic Appendectomy(Not Applicable) - Keegan Estevez DO
--- NOTE | 2018-09-28 02:09 | Discharge Summary ---
PRIMARY DISCHARGE DIAGNOSIS: Acute appendicitis. PROCEDURE PERFORMED: Laparoscopic appendectomy. HOSPITAL COURSE: The patient is a 22-year-old male inmate brought to the Emergency Department complaining of abdominal pain and nausea. His white count was 17,000. CT was consistent with acute appendicitis. He was taken to the operating room for laparoscopic appendectomy. The procedure was well tolerated. He was transferred to the surgical floor, continued on perioperative Zosyn. On postoperative day #1, he was tolerating diet and oral analgesics. Incisions were clean and dry. He was stable for discharge. DISCHARGE INSTRUCTIONS: Discharge back to [facility]. Follow up in 2 weeks. DISCHARGE MEDICATIONS: Tylenol #3 two tablets as needed and ibuprofen 600 mg every 6 hours as needed to be administered by the [facility].
== END 2018-09-26 10:40 ==
LOC: 3N 15:07 → ED 15:07 → 3N 17:09